=== PATIENT | female | born 1990 | race Caucasian/White ===

== ENCOUNTER 2019-11-24 04:34 | Emergency (ER) | payer OTHER, SELFPAY ==
[2019-11-24 04:35] VITALS: BP 131/87; PULSE 118; RESP 16; TEMP 36.6; O2SAT 97; BMI 40.1
--- NOTE | 2019-11-24 04:43 | ED.DCSUM_ITS ---
History of Present Illness Chief Complaint: Abd Pain Informant: Patient Narrative: Patient stated she started having right upper quadrant abdominal pain about 2 hours ago. She woke up and felt pain in this area. No nausea or vomiting or diarrhea. It is a deep dull ache. She had similar pain 2 weeks ago with one episode of vomiting and it went away. No history of gallbladder disease. Denies any medical problems. She is 33 weeks . She sees a income tax return preparer. She has had no complications with her . Denies any vaginal bleeding or lower abdominal discomfort. Denies any urinary symptoms. It hurts to push under her right rib cage where her gallbladder is located. She feels a little bit of pain in the back as well. No history of pancreatitis. Denies alcohol use. Current severity is mild to moderate. It was worse at home. It is letting up now. Past Medical History - Allergies and Home Meds Allergies/Adverse Reactions: Allergies No Known Allergies Allergy (Verified 11/24/19 04:35) Primary Care Physician: Brenden Salmeron DO [Primary Care Provider] - Prior records reviewed: Yes Past Medical History: None Surgical History: - - Reviewed Lives: With Family Smoking Status: Never smoker Alcohol: None Drugs: None Review of Systems General: Denies: Chills, Fever, Sweats Eyes: Denies: Visual changes - bilaterally, Diplopia ENT: Denies: Rhinorrhea, Sore throat Cardiovascular: Denies: Chest pain, Palpitations Respiratory: Denies: Dyspnea, Cough, Dyspnea on exertion Gastrointestinal: Reports: Abdominal pain. Denies: Nausea, Vomiting, Diarrhea, Melena, Hematochezia Genitourinary: Denies: Dysuria, Hematuria, Frequency Musculoskeletal: Denies: Back pain, Extremity Pain Skin: Denies: Rash, Wounds Neurological: Denies: Headache, Weakness, Numbness Physical Exam Vital Signs/Narrative: Vital Signs Temp Pulse Resp BP Pulse Ox 11/24/19 04:35 97.9 F 118 H 16 131/87 H 97 General: Well nourished, Well developed, No Acute Distress Head: Normocephalic, Atraumatic Eyes: Perrl, EOMI ENT: Moist mucous membranes, No rhinorrhea Neck: Supple, Nontender Cardiovascular: Regular rate, Regular rhythm, No murmurs Respiratory: No distress, CTA bilaterally, Chest nontender Abdomen: Soft, Nontender, Normal bowel sounds, Tender - Tender in the right upper quadrant without guarding or rebound. No Cassidy sign. Positive gravid abdomen, -. Negative for: Nondistended, No masses Back: Nontender, Normal Inspection Extremities: Nontender, No edema Skin: Normal color, No rash Neurological: Alert, Oriented x3, Cranial nerves II-XII grossly intact, Normal Strength, Normal Sensation Psychological: Normal affect, Normal Mood Diagnostic/Tx/Re-eval - Medical Decision Making Patient given IV fluids and lab work obtained. Lab work shows a mildly elevated AST and alk phos. The alkaline phosphatase is likely secondary to . Bilirubin normal. CBC shows no significant abnormality. Electrolytes unremarkable as well as kidney function. Lipase negative. Patient consented to right upper quadrant ultrasound. This will be signed out to the oncoming physician as our technologist will come in in the morning. ED Disposition - Plan for ED Patient: Referrals: Brenden Salmeron DO [Primary Care Provider] -
[2019-11-24 04:53] LABS: Absolute Lymphocyte Count 1.86 X10^3/uL (0.83-4.51); Absolute Neutrophil Count 8.2 X10^3/uL (2.0-7.7); Basophil# 0.04 X10^3/uL; Basophil% 0.4 % (0-1); Eosinophil# 0.16 X10^3/uL; Eosinophils% 1.5 % (0-5); Hematocrit 38.6 % (37-47); Hemoglobin 13.4 g/dL (12.0-15.0); Lymphocyte # 1.86 X10^3/ul (4.0); Lymphocyte % 17.1 % (19-41); Mean Corp Hgb Conc 34.7 g/dL (32-36); Mean Corpuscular Hgb 30.5 pg (27.0-32.0); Mean Corpuscular Volume 87.7 fL (81-99); Monocyte% 5.5 % (0-10); NRBC Flagged by Analyzer 0 % (0-5); Neutrophil # 8.17 X10^3/uL (2.7-7.7); Neutrophil % 74.9 % (47-70); Platelet Count 165 K/mm3 (150-450); RBC Distribution Width CV 13.5 % (11.6-14.6); RBC Distribution Width SD 42.9 fl (35.1-43.9); White Blood Count 10.9 K/mm3 (4.4-11.0)
[2019-11-24] MEDS: 0.9% Normal Saline 1,000 ML 1000 ML IV (05:04)
[2019-11-24 05:16] LABS: ALB/GLOB Ratio 0.6 RATIO (0.9-2.4); AST(SGOT) 69 U/L (15-37); Alanine Aminotransfer ALT/SGPT 38 U/L (13-56); Albumin, Serum 2.8 g/dL (3.2-5.0); Alkaline Phosphatase 119 U/L (45-117); Anion Gap 9 (5-15); BUN 7 mg/dL (7-18); BUN/Creat Ratio 9.8 RATIO (10-20); Calcium,Total 8.6 mg/dL (8.5-10.1); Chloride 104 mmol/L (98-107); Creatinine, Serum 0.72 mg/dL (0.55-1.02); EST Glomerular Filtration Rate 102 mL/min (>60); Est Glom Filt Rate - Afr Amer 123 mL/min (>60); Estimated Creatinine Clearance 98.66 ml/min; Globulin 4.7 g/dL (2.2-4.2); Glucose 93 mg/dL (74-106); Lipase 115 U/L (73-393); Potassium 4.1 mmol/L (3.5-5.1); Protein, Total 7.5 g/dL (6.4-8.2); Sodium Level 136 mmol/L (136-145)
--- NOTE | 2019-11-24 05:27 | US_ITS ---
STUDY: ABDOMINAL ULTRASOUND - RIGHT UPPER QUADRANT REASON FOR VISIT: Female, 29 years old RUQ PAIN -- 33 WEEKS PREG TECHNIQUE: Ultrasound evaluation of the right upper quadrant was performed with real-time and static strong-scale imaging. TECHNICAL QUALITY: Limited. Examination limited due to the patient?s condition. COMPARISON: None. FINDINGS: Liver: The liver measures 15 cm. There is normal echogenicity of the liver. The bile ducts are within normal limits. There is hepatic color flow. The direction of portal flow is hepatopetal. There is no demonstrated mass lesion. Gallbladder: Normal distended gallbladder. The gallbladder wall measures 3.5 mm. There is a negative sonographic Cassidy''s sign. There is no pericholecystic fluid. There are gallbladder polyps. Possible gallstones. Common Bile Duct (C.B.D.): The common bile duct measures 4.5 mm. Pancreas: Not clearly visualized Right Kidney: Normal size of the right kidney. The right kidney measures 12.7 cm. Normal renal cortex. The right cortex measures 2.0 cm. There is no demonstrated renal mass or cyst. Minimal central pelviectasis. US/Gallbladder IMPRESSION: There appears to be gallbladder polyps and possible gallstones. No evidence of gallbladder wall thickening or pericholecystic fluid. Unlikely to represent acute cholecystitis. Nonvisualized pancreas. Remainder is within normal limits. Electronically Signed: Jase Cesar DO at 7:56 EDT Tel , Service support ,
[2019-11-24 06:39] VITALS: BP 99/70; PULSE 95; O2SAT 96
--- NOTE | 2019-11-24 08:11 | ED.DCSUM_ITS ---
- ER Visit Summary Date of Service: 11/24/19 Chief Complaint: [Addendum to initial dictation by Dr. Lele Lr] History of Present Illness: The patient is a 29 F [presents to the emergency department with abdominal pain that started several hours before presentation to the emergency department. Patient was fully evaluated and had lab work which showed a slight elevated alkaline phosphatase as well as ALT. Patient had similar episode of pain 2 weeks ago. Care of patient turned over to me awaiting ultrasound results of right upper quadrant.] On my interview of patient she states her pain is mostly resolved at this time. Patient states last time she had an episode like this was 2 weeks ago and her pain resolved after about 4 5 hours. Physical Examination: [HEENT-PERRLA, EOMI. Cranial nerves II through XII grossly intact. TMs clear. Mucous membranes moist. No adenopathy. Cardiovascular-regular rate and rhythm without murmur or ectopy Lungs-clear to auscultation, chest wall stable without crepitus or subcu emphysema Abdomen-normoactive bowel sounds, soft. Patient has mild right upper quadrant tenderness to palpation. There is no rebound, rigidity, or pedal signs. Extremities-intact ?4, normal range of motion, normal pulses, atraumatic] Test Results: [Gallbladder ultrasound results showed what appears to be polyps and possible gallstones. There is no evidence of gallbladder wall thickening or pericholecystic fluid. Common bile duct measured 4.5 mm. Unlikely to represent acute cholecystitis.] Emergency Department Course and Treatment: [Patient did not anything for pain in the emergency department.] Treatment Plan: [I discussed case with Dr. Anyi Shah and I will have patient follow-up with her. I will advised to avoid spicy greasy foods. Patient does not anything for pain for home. I suspect symptoms likely secondary to biliary colic.] Disposition: [Discharged home in stable condition.] Impression: [Abdominal pain Biliary colic] This note was generated with [employer] dictation software. It may contain incorrect words, spelling, and punctuation that were not noted in review of the chart prior to signing ED Disposition - Plan for ED Patient: Referrals: Brenden Salmeron, [Primary Care Provider] -
--- NOTE | 2019-11-24 08:14 | ED.DEP ---
ED Disposition - Plan for ED Patient: Instructions: BILIARY COLIC with Gallstone (Confirmed), ABDOMINAL PAIN, Unknown Cause, (Female) Referrals: Brenden Salmeron DO [Primary Care Provider] - Anyi Shah MD [STAFF PHYSICIAN] - 3-5 Days if not improving
== END 2019-11-24 08:43 | disposition home or self-care (01) ==
PROVIDERS: Emergency Provider Emergency Medicine; PCP Family Medicine
DX: O26.613 Liver and biliary tract disorders in pregnancy, third trimester (principal); K80.50 Calculus of bile duct without cholangitis or cholecystitis without obstruction; Z3A.33 33 weeks gestation of pregnancy
CPT/HCPCS: 76705; 80053; 83690; 85025; 96360; 99283; J7030; A4216

== ENCOUNTER 2023-06-08 13:43 | Emergency (ER) | payer OTHER, SELFPAY ==
[2023-06-08 13:44] VITALS: BP 149/95; PULSE 119; RESP 16; TEMP 36.2; O2SAT 97
--- NOTE | 2023-06-08 14:07 | US_ITS ---
HISTORY: pain, bleeding, preg. LMP 04/13/2023. TECHNIQUE: Transvaginal pelvic ultrasound was performed. 78 images. COMPARISON: None. FINDINGS: UTERUS: 13.5 x 7.1 x 7.8 cm. ENDOMETRIAL COMPLEX: 14 mm in thickness. No intrauterine gestational sac identified. OVARIES: Not visualized. Limited evaluation due to overlying bowel gas. No adnexal masses demonstrated. FREE FLUID: None. US/Transvaginal w/Preg US IMPRESSION: No intrauterine gestational sac identified. Recommend correlation with serial beta hCG levels and follow-up ultrasound to assess for ectopic or spontaneous miscarriage versus very early intrauterine . Electronically Signed: Dejah Santiago MD at 15:51 EDT ,
--- NOTE | 2023-06-08 14:09 | ED.VIS.FEGU ---
HPI HPI - Female History of Present Illness Chief Complaint: Vag Bld, Preg Informant: patient Associated Symptoms Last known menstrual period: 04/13/2023 P: 4 Narrative Narrative: Patient by positive home test, she started having lower abdominal pain and bleeding/spotting that started 4 days ago, then that night it was very heavy then it let up the next day or 2, for the last 24 hours it has been heavy again with lots of clots. She sees a local corporate compliance manager none of the [facility] practices here in [place]. She felt a little lightheaded this morning but that passed and she has had no syncope or near syncope. She has had about 1 pad per hour or a little less for the last 5 or 6 hours. PFSH PFSH Medical History no medical history no medical history Home Medications NK 11/24/19 [History Last Taken Unknown] Allergy/AdvReac Type Severity Reaction Status Date / Time No Known Allergies Allergy Verified 06/08/23 13:44 Social History Smoking Status: Never smoker ROS ROS ED Constitutional Constitutional ED: Denies chills or fever(s) Eyes Eyes: Denies change in vision or diplopia ENT ENT ED: Denies rhinorrhea or sore throat Cardiovascular Cardiovascular: Reports lightheadedness; Denies chest pain or palpitations Respiratory/Chest Respiratory/Chest: Denies cough or dyspnea Gastrointestinal Gastrointestinal: Reports abdominal pain; Denies diarrhea, nausea or vomiting Genitourinary Genitourinary ED: Reports vaginal bleeding; Denies dysuria or hematuria Musculoskeletal Musculoskeletal: Denies back pain or neck pain Integumentary Denies abscess or rash Neurologic Neurologic: Denies headache(s), paresthesias or weakness Psychiatric Psychiatric: Denies anxiety or suicidal thoughts EXAM Physical Exam Const Vital Signs: 06/08/23 13:44 06/08/23 14:18 Temperature 97.1 F L Temperature Source Temporal Pulse Rate 119 H 106 H Respiratory Rate 16 16 Blood Pressure 149/95 H 105/64 Blood Pressure Mean 113 77 Pulse Ox 97 96 Oxygen Delivery Method Room Air Room Air Positive well nourished and well developed General Appearance ED: well developed and NAD HEENT Reports moist mucous membranes normocephalic and atraumatic Eyes PERRL and EOMs intact bilaterally Neck full ROM and supple Resp normal respiratory effort and clear to auscultation bilaterally Cardio regular rate, regular rhythm and no murmurs GI non-distended GI Narrative: Mild suprapubic tenderness no guarding or rebound otherwise benign abdomen. Limited to some degree by mild obesity. Auscultation: normoactive bowel sounds Palpation: soft Speculum Exam - Vagina: vaginal bleeding Back/Spine no CVA tenderness General Back: other FROM Extremity normal to inspection General Extremety ED: Negative for edema, pulses abnormal or tenderness General Extremity: Negative for edema or pulses abnormal Neuro oriented x3, CN's II-XII intact bilaterally and no sensory deficits noted Sensorium / Orientation: awake and alert Motor Exam: strength 5/5 throughout Skin no rashes or lesions noted and no wounds MDM MDM MDM Narrative Medical decision making narrative: Patient's blood type is a positive RhoGAM not indicated, her blood counts are excellent with a hemoglobin of 14, she remained clinically and hemodynamically stable in the emergency department with a heart rate improving after IV fluids, and her quant is only 102 with an ultrasound that basically shows blood clots in the uterus and nothing else. No sign of an obvious ectopic. My interpretation of all of this is that she probably did miscarry already. Given that she is having heavy bleeding delayed, although there are no signs of retained products of conception, I discussed with Dr. Sebastian, she reviewed the tests as well and states that the patient does not at this time need a dilatation curettage, but needs a repeat quantitative hCG in 48 hours and then close a patient follow-up with her, that was relayed and patient is comfortable with that plan. Lab Data Attestation: I reviewed the patient's lab results. Labs: Laboratory Results - last 24 hr 06/08/23 14:05 WBC 9.7 RBC 4.71 Hgb 14.0 Hct 40.2 MCV 85.4 MCH 29.7 MCHC 34.8 RDW Std Deviation 39.6 RDW Coeff of Vj 12.8 Plt Count 269 MPV 10.1 Immature Gran % (Auto) 0.500 Neut % (Auto) 70.5 H Lymph % (Auto) 20.8 [place] % (Auto) 6.1 Eos % (Auto) 1.5 Baso % (Auto) 0.6 Absolute Neuts (auto) 6.8 Absolute Lymphs (auto) 2.02 Nucleated RBC % 0 HCG, Quant 102 H Blood Type O POSITIVE Radiography Diagnostic Testing: Clinical Impression(s) from Imaging Studies Obstetrics Ultrasound 06/08/23 14:07 IMPRESSION: No intrauterine gestational sac identified. Recommend correlation with serial beta hCG levels and follow-up ultrasound to assess for ectopic or spontaneous miscarriage versus very early intrauterine . Electronically Signed: Dejah Santiago MD at 15:51 EDT Reading Location ID and State: [facility] / [place] Tel , Service support , Discharge Plan Triage Chief Complaint: Vag Bld, Preg ED Provider: Rip Crane Dx/Rx/DC Orders Clinical Impression: Complete miscarriage, DUB (dysfunctional uterine bleeding) Instructions: Miscarriage Dc Prescriptions: No Action NK Primary Care Provider: Miguel Salmeron Referrals: Brenden Salmeron DO [Med Staff - First Aid Trainer] - Jovita Sebastian MD [Med Staff - Active Staff] - (If you do not receive a call from the office after your blood draw on Saturday, call the office before 4:00 for further instructions and follow-up.) Activity Restrictions/Additional Instructions: Come to outpatient lab on Saturday early afternoon to have your blood drawn. You should receive a call from [facility] [facility] Dr. Sebastian's office that same day regarding the results and further instructions. The medication received in the ER should help taper your bleeding. The order for the blood draw is already in the system at the hospital, you do not need to bring anything or fast for it. Disposition Disposition: Home, Self Care
[2023-06-08 14:18] VITALS: BP 105/64; PULSE 106; RESP 16; O2SAT 96; BMI 41.4
[2023-06-08 14:19] LABS: Absolute Lymphocyte Count 2.02 X10^3/uL (0.83-4.51); Absolute Neutrophil Count 6.8 X10^3/uL (2.0-7.7); Basophil# 0.06 X10^3/uL; Basophil% 0.6 % (0-1); Eosinophil# 0.15 X10^3/uL; Eosinophils% 1.5 % (0-5); Hematocrit 40.2 % (37-47); Lymphocyte # 2.02 X10^3/ul (0.83-4.51); Lymphocyte % 20.8 % (19-41); Mean Corp Hgb Conc 34.8 g/dL (32-36); Mean Corpuscular Hgb 29.7 pg (27.0-32.0); Mean Corpuscular Volume 85.4 fL (81-99); Mean Platelet Vol. 10.1 fl (6.2-12.0); Monocyte# 0.59 X10^3/uL; Monocyte% 6.1 % (0-10); NRBC Flagged by Analyzer 0 % (0-5); Neutrophil # 6.84 X10^3/uL (2.7-7.7); Neutrophil % 70.5 % (47-70); Platelet Count 269 K/mm3 (150-450); RBC Distribution Width CV 12.8 % (11.6-14.6); RBC Distribution Width SD 39.6 fl (35.1-43.9); Red Blood Count 4.71 M/mm3 (4.2-5.4); White Blood Count 9.7 K/mm3 (4.4-11.0)
[2023-06-08] MEDS: 0.9% Normal Saline (1000mL) 1,000 ML 1000 ML IV (14:25)
[2023-06-08 15:46] LABS: hCG Titer Quant., Serum 102 mIU/mL (1-3)
[2023-06-08] MEDS: miSOPROStol 200 MCG Tablet 1000 MCG PO (16:49)
[2023-06-08 16:52] VITALS: BP 96/67; PULSE 87; RESP 16; O2SAT 97
== END 2023-06-08 17:05 | disposition home or self-care (01) ==
PROVIDERS: Emergency Provider Emergency Medicine; PCP Family Medicine; Visit Provider Emergency Medicine
DX: O03.9 Complete or unspecified spontaneous abortion without complication (principal); N93.8 Other specified abnormal uterine and vaginal bleeding
CPT/HCPCS: 76817; 84702; 85025; 86900; 86901; 96360; 96361; 99284; J7030; A4216

== ENCOUNTER → 2023-06-10 | Outpatient (CLI) | payer OTHER, SELFPAY ==
[2023-06-10 14:12] LABS: hCG Titer Quant., Serum 34 mIU/mL (1-3)
== END | disposition home or self-care (01) ==
PROVIDERS: PCP Family Medicine; Referring Provider Obstetrics & Gynecology; Visit Provider Obstetrics & Gynecology
DX: O03.9 Complete or unspecified spontaneous abortion without complication (principal)
CPT/HCPCS: 36415; 84702